=== PATIENT | male | born 1940 | race Caucasian/White ===

== ENCOUNTER 2024-03-28 10:14 | Emergency (ER) | payer MEDICARE, BC, SELFPAY ==
[2024-03-28] VITALS (14 sets, daily range): BP systolic 137–162; BP diastolic 74–90; PULSE 57–70; RESP 18; TEMP 36.2; O2SAT 94–98; BMI 30.6
--- NOTE | 2024-03-28 10:33 | ED.GENADULT ---
HPI - General Adult General Time Seen by Provider: 10:34 Date Seen: 03/28/24 Chief complaint: Dizziness/Vertigo Stated complaint: lightheaded Time Seen by Provider: 03/28/24 10:33 Source: patient and RN notes reviewed Mode of arrival: ambulatory Limitations: no limitations History of Present Illness HPI narrative: We do not have records here and thus I am requesting records from [facility]. Marcelino is a very pleasant 84-year-old gentleman with history of vertigo, cardiac murmur, hyperlipidemia who comes to the [facility] for evaluation regarding lightheadedness. Marcelino notes a past history of vertigo at least 3 episodes where he has had need to go to the hospital or be seen by a chiropractor. He notes that when he has vertigo the room is usually spinning and he has episodes of vomiting. Last weekend March 19 and he began experiencing lightheadedness. He did not have the spinning sensation nor the nausea or vomiting. He states that he went and saw the chiropractor on ThursdayMarch 21 and following that adjustment he had no symptoms until yesterday. Yesterday he states that he was in his golf cart checking out his sweet corn when he had an episode of lightheadedness lasting 10-15 minutes. Marcelino notes that this happened again this morning. He notes that his balance is quite off when walking. He notes when the symptoms come on he will sit down. He does not really endorse feeling like he is going to pass out. He does not have an unusual sound in his hearing, he initially thought maybe he had a change in vision but upon further discussion does not think his vision changed. He denies chest pain. He notes he feels very fatigued. Last night he had no symptoms of lightheadedness but states that he was very restless. Usually when he has vertical if he turns over in bed it causes him to spin and vomit and this was not the case last night. Denies cough cold congestion sore throat fever runny nose. Does state that he urinates frequently and has been doing that a little more than usual the last week. He states that he tries to drink lots of fluids. His states that he has a does not drink fluids. He did not try using the meclizine which she has at home for vertigo. Yesterday he did have a little bit of diarrhea which was unusual for him. No diarrhea today. Patient stents that he has a history of of leaky valve. Is not sure which 1. We will attempt to obtain records. Related Data Home Medications ?Medication ?Instructions ?Recorded ?Confirmed amlodipine 5 mg tablet 5 mg PO DAILY 03/28/24 03/28/24 nabumetone 750 mg tablet 750 mg PO DAILY pain 03/28/24 03/28/24 simvastatin 20 mg tablet 20 mg PO QPM 03/28/24 03/28/24 Allergies Allergy/AdvReac Type Severity Reaction Status Date / Time No Known Drug Allergies Allergy Verified 03/28/24 10:25 Review of Systems Status of ROS: Reports: 10 or more systems reviewed and unremarkable except as noted in History and below Const: Reports: fatigue; Denies: fever or chills Eyes: Denies: change in vision or blurry vision ENMT: Denies: throat pain, neck pain, difficulty swallowing or nasal congestion Cardio: Reports: lightheadedness; Denies: chest pain, palpitations, swelling of feet/ankles or shortness of breath with exertion Resp: Denies: shortness of breath, cough or wheezing GI: Reports: diarrhea (Limited to yesterday); Denies: abdominal pain, nausea, vomiting or difficulty swallowing : Reports: urinary frequency and urinary urgency; Denies: painful urination or blood in urine Musculo: Denies: neck pain Neuro: Denies: headache Endo: Reports: fatigue Allergy/Immuno: Denies: wheezing PFSH [facility] Medical History (Updated 03/28/24 @ 13:33 by Madeleine Benites MD) Aortic valve sclerosis ?I35.8 - Other nonrheumatic aortic valve disorders (ICD-10) Esophageal reflux ?K21.9 - Gastro-esophageal reflux disease without esophagitis (ICD-10) Hypertension ?I10 - Essential (primary) hypertension (ICD-10) Hyperlipidemia ?E78.5 - Hyperlipidemia, unspecified (ICD-10) Benign prostatic hyperplasia ?N40.0 - Benign prostatic hyperplasia without lower urinary tract symptoms (ICD-10) Actinic keratosis ?L57.0 - Actinic keratosis (ICD-10) Finger amputation, no complication ?S68.119A - Complete traumatic metacarpophalangeal amputation of unspecified finger, initial encounter (ICD-10) Surgical History (Updated 03/28/24 @ 11:15 by Madeleine Benites MD) History of cholecystectomy ?Z90.49 - Acquired absence of other specified parts of digestive tract (ICD-10) Social History Smoking Status: Never smoker How often do you have a drink containing alcohol: never AUDIT-C Alcohol total score: 0 Non-prescribed substance use: denies use Exam Narrative: Exam Narrative: Alert and oriented. A challenging historian with variable answers. EOM is full and pupils equal round reactive. Head is atraumatic normocephalic. No nystagmus noted. Face symmetrical with eyebrow raise smile. Tongue is midline. Oral cavity moist mucous membranes. Palate rises symmetrically. Neck is supple without lymphadenopathy. Heart with regular rate and rhythm. There is a holosystolic crescendo decrescendo murmur. Lungs are clear bilaterally. Abdomen is soft nontender with no pulsating mass. Pedal pulses are intact symmetrical. No evidence of lower extremity edema. Romberg is negative. Finger to nose intact. Able to move all extremities with full motor and strength. Const: Vital Signs, click to edit/add: Vital Signs - 24 hr 03/28/24 10:22 03/28/24 11:10 Temperature 97.1 F L Pulse Rate [Right Pulse Oximeter] 69 Pulse Rate [orthos tatic lying Left] 62 Pulse Rate [orthos tatic sitting Left ] 68 Pulse Rate [orthos tatic standing Lef t] 63 Respiratory Rate 18 Blood Pressure [Ri ght Upper Arm] 143/74 H Blood Pressure [or thostatic lying Le ft Arm] 158/82 H Blood Pressure [or thostatic sitting Left Arm] 137/90 H Blood Pressure [or thostatic standing Left Arm] 156/80 H Pulse Oximetry 94 Oxygen Delivery Me thod Room Air Documenting provider has reviewed patient's vital signs: yes Course Course ED Course: Differential diagnosis includes but is not limited to critical aortic stenosis, angina, cardiac arrhythmia, orthostatic hypotension, vertigo/labyrinthitis, electrolyte imbalance, UTI. Will place IV and draw blood to include CBC, comprehensive panel, CRP, troponin, urinalysis. Will also do EKG, photography instructor, chest x-ray, orthostatic vital signs. Reevaluation(s) Reevaluation #1: Patient continues to do well and does not have any symptoms at this time. Initial troponin reassuring as was EKG with no evidence of arrhythmia. Chest x-ray reassuring. At this time patient does need to urinate and we will do a post void bladder scan as well. Plan on 2nd troponin at 1310 Reevaluation #2: Patient noted to be up walking was asymptomatic on his walk to the bathroom and back. Hallpike maneuver accomplished and patient had no symptoms when lying down suddenly. No evidence of nystagmus. He had a slight transient dizziness less than 1 minute when sitting back up. On the left no dizziness when lying down and no dizziness when sitting back up. Reevaluation #3: Second troponin negative. Vital Signs Vital signs: Initial Vital Signs Temperature 97.1 F L 03/28/24 10:22 Temperature Source Temporal Artery Scan 03/28/24 10:22 Pulse Rate 69 03/28/24 10:22 Respiratory Rate 18 03/28/24 10:22 Blood Pressure 143/74 H 03/28/24 10:22 Blood Pressure Mean 97 03/28/24 10:22 Blood Pressure Position Sitting 03/28/24 10:22 Pulse Oximetry 94 03/28/24 10:22 Oxygen Delivery Method Room Air 03/28/24 10:22 Vital Signs Temperature 97.1 F L 03/28/24 10:22 Pulse Rate 69 03/28/24 10:22 Respiratory Rate 18 03/28/24 10:22 Blood Pressure 143/74 H 03/28/24 10:22 Pulse Oximetry 94 03/28/24 10:22 Oxygen Delivery Method Room Air 03/28/24 10:22 Temperature 97.1 F L 03/28/24 10:22 Pulse Rate 68 03/28/24 11:10 Respiratory Rate 18 03/28/24 10:22 Blood Pressure 158/82 H 03/28/24 11:10 Pulse Oximetry 94 03/28/24 10:22 Oxygen Delivery Method Room Air 03/28/24 10:22 Medications Administered Medications: Discontinued Medications Generic Name Dose Route Start Last Admin Trade Name Freq PRN Reason Stop Dose Admin Sodium Chloride 1,000 mls @ 1,000 mls/hr 03/28/24 10:47 03/28/24 12:14 0.9 % Sodium Chloride 1000 Ml IV 03/28/24 11:46 Infused .Q1H [facility] Medical Decision Making MDM Narrative Medical decision making narrative: 1. Lightheadedness-patient noted to have past history of vertigo. Usually this was acute spinning and vomiting. He describes previously undergoing Radha's maneuvers, hemodialysis patient care specialist and does have a prescription for meclizine. What he has been experiencing currently is more of a lightheadedness. However he does describe the need to sit down with this occurs, no chest pain shortness of breath or nausea. He was asymptomatic during his time here except for a brief moment when I was doing Hallpike maneuvers and he was brought back up sitting from a right-sided test. That was transient. I was unable to replicate this on the left. Given these findings this most likely represents mild form of vertigo. Patient describes discomfort over his ears in the past but he has not had that this week and I am unable to ascertain what that might mean. He also states that 2 years ago he was at the dentist and when they were leaning him back he did have some spinning. At this time what I suggest is follow-up with his primary provider. I suggest follow-up with Neurology for his symptoms. Today he did not have any symptoms indicative of a stroke and therefore did not pursue imaging. I suggest the use of meclizine as needed. 2. Aortic valve sclerosis-obvious auscultatory findings. Patient however denies chest pain or shortness of breath and therefore while we need to consider an aortic valve stenosis he certainly does not have any symptoms indicative of need for immediate intervention. He does have a follow-up appointment with Cardiology for echocardiogram in May. If however this worsens any does started experiencing pain he will need to return to the emergency room. There was no evidence of arrhythmia while he was here and 2 sets of cardiac enzymes were negative 3. Urinary frequency-urinalysis without evidence of UTI. A post void bladder scan was negative for urinary retention. 4. Disposition-patient is quite frustrated that we are unable to ascertain the exact cause of his symptoms. He has essentially been asymptomatic during his stay here. There is no evidence of an acute coronary event, arrhythmia, acute stroke, electrolyte imbalance, UTI. Recommend returning to the emergency room for worsening symptoms. Patient and his voice understanding. Medical Records Medical records reviewed: Yes I reviewed the patient's medical records Lab Data Lab results reviewed: Yes I reviewed the patient's lab results Labs: Lab Results 03/28/24 03/28/24 03/28/24 Range/Units 11:10 12:20 13:10 WBC 7.84 (4.50-11.00) K/uL RBC 4.54 (4.30-5.90) m/uL Hgb 13.5 (13.5-17.5) gm/dL Hct 39.7 (37.0-53.0) % MCV 87 (80-100) fL MCH 30 (26-34) pg MCHC 34 (32-36) gm/dL RDW Coeff of Alem 12.9 (11.5-15.5) % Plt Count 212 (140-440) K/uL Neut % (Auto) 67.1 (42.0-72.0) % Lymph % (Auto) 19.6 L (20-44) % Bacon % (Auto) 8.2 (0.0-11.0) % Eos % (Auto) 4.2 (0.0-7.0) % Baso % (Auto) 0.8 (0.0-3.0) % Neut # (Auto) 5.26 (1.7-7.0) K/uL Lymph # (Auto) 1.50 (0.90-2.90) K/uL Bacon # (Auto) 0.60 (0.00-0.90) K/UL Eos # (Auto) 0.33 (0.00-0.50) K/uL Baso # (Auto) 0.06 (0.00-0.30) K/uL Abs Immat Gran (auto) 0.01 (0.00-0.30) K/uL Imm/Tot Granulo (auto) 0.1 % Sodium 138 (135-149) mmol/L Potassium 4.0 (3.6-5.1) mmol/L Chloride 106 (96-114) mmol/L Carbon Dioxide 25 (20-32) mmol/L Anion Gap 7 (7-15) mEq/L BUN 22 (7-30) mg/dL Creatinine 1.3 (0.5-1.5) mg/dL Estimated Creat Clear 33.43 Estimated GFR 54 ml/min Glucose 98 (60-115) mg/dL Calcium 8.9 (8.4-10.6) mg/dL Total Bilirubin 0.7 (0.1-1.5) mg/dL AST 23 (12-35) U/L ALT 10 (4-50) U/L Alkaline Phosphatase 96 (40-150) U/L C-Reactive Protein < 0.5 L (0.5-1.0) mg/dL Total Protein 7.3 (6.0-8.3) g/dL Albumin 4.4 (3.3-5.0) g/dL Urine Color Yellow (Yellow) Urine Appearance Clear (Clear) Urine pH 6.0 (5.0-8.5) Ur Specific [place] 1.015 (1.000-1.030) Urine Protein Negative (Negative) Urine Glucose (UA) Negative (Negative) Urine Ketones Negative (Negative) Urine Blood Negative (Negative) Urine Nitrite Negative (Negative) Urine Bilirubin Negative (Negative) Urine Urobilinogen 0.2 (0.2-1.0) Ur Leukocyte Esterase Negative (Negative) Urine RBC 0-2 (0-2) Urine WBC 0-2 (0-5) Ur Squamous Epith Cells None (None-Few) Urine Bacteria None (None) POC Troponin I 0.03 0.03 (0.01-0.04) ng/ml Imaging Data Chest x-ray: Attestation: I have reviewed the pertinent imaging results. My impression: No widened mediastinum or infiltrates Radiologist's impression: The cardiomediastinal silhouette and pulmonary vasculature are unremarkable. There is no focal airspace consolidation, pleural effusion, or pneumothorax. Trace left basilar atelectasis/scarring. No displaced fractures. Impression No acute cardiopulmonary process. ECG Data Attestation: I personally reviewed and interpreted this ECG as follows: Interpretation: EKG by my read shows sinus rhythm at a rate of 60. No acute ST or T-wave changes. 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 QT and OK intervals within normal limits. Discharge Plan Discharge Clinical Impression: Episodic lightheadedness Patient Disposition: Home, Self-Care Condition: Unchanged Additional Instructions: At this time, your test for heart attack or unusual heart rhythm are negative and therefore reassuring. Most likely your lightheadedness is a version of your vertigo but I cannot be 100% sure of that. I did not find any other emergent problems today. Your urine does not have an infection, your electrolytes are normal, your hemoglobin or blood counts are good. Your kidney function is also good. Your lightheadedness may be related to your aortic valve. There is nothing emergent to be done today unless you would develop chest pain with it. My recommendation is to use the meclizine medication if needed for lightheadedness. Follow-up with your primary doctor for further evaluation. Because this is an ongoing problem I suggest you see a neurologist. Prescriptions: No Action nabumetone 750 mg tablet 750 mg PO DAILY amlodipine 5 mg tablet 5 mg PO DAILY simvastatin 20 mg tablet 20 mg PO QPM Follow Up/Referrals: Provider,Not a Local [Primary Care Provider] - Stand Alone Forms: [employer] Info Instructions
--- NOTE | 2024-03-28 11:09 | CRLHL7_ITS ---
For Patients: As a result of the Century Cures Act, medical imaging exams and procedure reports are released immediately into your electronic medical record. You may view this report before your referring provider. If you have questions, please contact your health care provider. Indication Lightheaded Technique One view(s) of the chest Comparison None Findings The cardiomediastinal silhouette and pulmonary vasculature are unremarkable. There is no focal airspace consolidation, pleural effusion, or pneumothorax. Trace left basilar atelectasis/scarring. No displaced fractures. Impression No acute cardiopulmonary process. Dictated by Kenan Grace MD @ 03/28/2024 11:25:47 AM (Electronically Signed)
--- OUTSIDE RECORDS SUMMARY | 2024-03-28 11:09 | XMS_ITS | Clinical Summary ---
Author Organization [facility] Address [address] [place] [address] Care Team Providers Care Government Program Manager Name Role Phone Chester Moncada P.A.-C., P.A. Primary Care Pr ovider Source Comments Patient records contain information from all sites at [facility]. For routine questions regarding patient records, call [phone] during business hours, M-F 8:00 AM - 5:00 PM Central Time. Record requests for emergency care only can be directed to [phone] at any time.[facility] Allergies Active Allergy Reactions Criticality Noted Date Comments Lisinopril Angioedema (Reselect Reaction) 02/11 Medications Medication Sig Dispensed Refills Start Date End Date Status omeprazole 20 mg tablet,delayed release (DR/EC) Take 1 capsule by mouth daily. 01/15/2011 Active triamcinolone (KENALOG) 0.1 % cream Apply 1 application topically 2 (two) times a day as needed for irritation or rash. 454 g 2 06/17/2021 Active hydrocortisone (HYTONE) 2.5 % cream 04/19/2023 Active nabumetone (RELAFEN) 750 mg tablet TAKE ONE TABLET BY MOUTH EVERY DAY 90 tablet 3 05/27/2023 Active amLODIPine (NORVASC) 5 mg tablet Take 1 tablet (5 mg total) by mouth daily. 90 tablet 3 05/29/2023 Active simvastatin (ZOCOR) 20 mg tablet Take 1 tablet (20 mg total) by mouth at bedtime. 90 tablet 3 05/29/2023 05/28/2024 Active Active Problems Problem Noted Date Diagnosed Date Keratosis Actinic 04/30/2022 Benign Prostatic Hyperplasia Without Obstruction 04/18/2020 Sclerosis Aortic Valve 02/25/2018 Hypertension Essential Primary 01/25/2018 Reflux Esophageal 01/15/2011 Hyperlipidemia 01/15/2011 Resolved Problems Problem Noted Date Diagnosed Date Resolved Date Carpal Tunnel Syndrome Bilateral 10/03/2019 05/02/2021 Hypertension Essential Benign 06/06/2013 01/27/2019 Overview: Benign hypertension Thrombosis Deep Vein Acute Lower Leg 01/15/2011 01/27/2019 Overview: DVT or embolism of distal lower extremity Immunizations Name Administration Dates Next Due HZV (ZOSTAVAX) 09/04/2010,07/05/2010 Influenza (IM) Preservative Free 08/06/2010 Influenza TIV (IM) 06/09/2019 Influenza high dose QV(65 ye ars or older) (PF) 06/14/2020,05/24/2020 Influenza, Quadrivalent, Adj uvanted, Preservative Free 07/17/2022,06/13/2021 Influenza, Seasonal, Injectable 08/11/2011,08/25 Influenza, Unspecified 08/06/2010,08/25/2003 PCV13 02/06/2016 PPSV23 02/20/2017 RZV (SHINGRIX) 01/31/2021,,04/05/2020(Deferr ed: Patient Refused) Td (Adult), adsorbed 04/05/2020(Deferred: Other) Tdap 04/05/2020(Deferred: Patient Ref used) Zoster, Unspecified 04/05/2020(Deferred: Other) influenza high dose (65 year s or older) (PF) 06/10/2018,06/16/2017,06/17/2016,2014,06/19/2014,06/13/2012 Family History Medical History Relation Name Comments Alzheimer's disease Brother 1 Diabetes Brother 1 Hypertension Brother 1 Diabetes Brother 2 Relation Name Status Comments Brother 1 Brother 2 Social History Tobacco Use Types Packs/Day Years Used Date Smoking Tobacco: Never Smokeless Tobacco: Never Tobacco Cessation:Counseling Given: Not Answered Alcohol Use Standard Drinks/Week Comments Yes 1 (1 standard drink = 0.6 oz pur e alcohol) Humiliation, Afraid, Rape, and Kick questionnair e Answer Date Recorded Within the last year, have y ou been afraid of your partner or ex-partner? No 07/31/2022 Within the last year, have y ou been humiliated or emotionally abused in other ways by your partner or ex-partner? No Within the last year, have y ou been kicked, hit, slapped, or otherwise physically hurt by your partner or ex-partner? No 07/31/2022 Within the last year, have y ou been raped or forced to have any kind of sexual activity by your partner or ex-partner? No 07/31/2022 Social Connection and Isolat ion Panel [NHANES] Answer Date Recorded In a typical week, how many times do you talk on the phone with family, friends, or neighbors? More than three times a week 07/31/2022 How often do you get togethe r with friends or relatives? Three times a week 07/31/2022 How often do you attend [facility] or jehovah's witness services? More than 4 times per year 07/31/2022 Do you belong to any clubs o r organizations such as quaker groups, unions, fraternal or athletic groups, or school groups? Yes 07/31/2022 How often do you attend meet ings of the clubs or organizations you belong to? 1 to 4 times per year 07/31/2022 Are you , , di vorced, , never , or living with a partner? 07/31/2022 AUDIT-C Answer Date Recorded Q1: How often do you have a drink containing alcohol? Monthly or less 07/31/2022 Q2: How many drinks containi ng alcohol do you have on a typical day when you are drinking? Patient does not drink Q3: How often do you have si x or more drinks on one occasion? Never 07/31/2022 Overall Financial Resource Strain (CARDIA) Answe r Date Recorded How hard is it for you to pa y for the very basics like food, housing, medical care, and heating? Not hard at all 07/31/2022 PHQ-2 Answer Date Recorded PHQ-2 Score 0 05/22/2023 [facility] - Occupational Stress Questionnaire Answer Date Recorded Do you feel stress - tense, restless, nervous, or anxious, or unable to sleep at night because your mind is troubled all the time - these days? Only a little 07/31/2022 Exercise Vital Sign Answer Date Recorde d On average, how many days pe r week do you engage in moderate to strenuous exercise (like a brisk walk)? 4 days 07/31/2022 On average, how many minutes do you engage in exercise at this level? 30 min 07/31/2022 Hunger Vital Sign Answer Date Recorded Within the past 12 months, y ou worried that your food would run out before you got the money to buy more. Never true 07/31/20 Within the past 12 months, t he food you bought just didn't last and you didn't have money to get more. Never true 07/31/2022 PRAPARE - Transportation Answer Date Re corded In the past 12 months, has l ack of transportation kept you from medical appointments or from getting medications? No 07/15 In the past 12 months, has l ack of transportation kept you from meetings, work, or from getting things needed for daily living? No 07/31/2022 Housing Stability Vital Sign Answer Antonio e Recorded In the last 12 months, was t here a time when you were not able to pay the mortgage or rent on time? No 07/31/2022 In the last 12 months, how many places have you lived? 2 07/31/2022 In the last 12 months, was t here a time when you did not have a steady place to sleep or slept in a assisted (including now)? No 07/31/2022 Nutrition Answer Date Recorded Nutrition: EVOO Fat Source Unknown 07/31 On average, how many serving s of fruits and vegetables do you eat per day (serving size is equal to 1 cup or approximately the size of a tennis ball)? 2-3 07/31/2022 Dental Answer Date Recorded Dental: Regular Dentist Yes 07/31/20 Education Answer Date Recorded What is the highest level of school you have completed or the highest degree you have received? 12th grade 07/31/2022 Sex and Gender Information Value Date Recorded Sex Assigned at Male 04/28/2023 1:33 PM CDT Gender Identity Male 04/28/2023 1:33 PM CDT Sexual Orientation Straight 04/28/2023 1: 33 PM CDT Last Filed Vital Signs Vital Sign Reading Time Taken Comments Blood Pressure 125/68 05/29/2023 7:[address] rage Pulse 68 05/29/2023 7:59 AM CDT Temperature 36 ??C (96.8 ??F) 05/29/2023 7:59 AM CDT Respiratory Rate 16 05/29/2023 7:59 AM CDT Oxygen Saturation 97% 04/29/2023 8:33 AM CDT room air Inhaled Oxygen Concentration - - Weight 80.1 kg (176 lb 9.4 oz) 05/29/2023 7:59 A M CDT Height 164 cm (5' 4.57) 05/29/2023 7:59 AM CDT Body Mass Index 29.78 05/29/2023 7:59 AM CDT Plan of Treatment Upcoming Encounters Date Type Department Care Team (Latest Contact Info) Description 05/25/2024 8:00 AM CDT Appointment Department of Cardiovascular Diseases in [address] [phone] Pepe Marks M.D. [address] [place] [phone] Discharge Disposition: Home or Self Care 05/30/2024 8:50 AM CDT Appointment Department of Laboratory Medicine in [address] [phone] Pepe Marks M.D. [address] [place] [phone] 05/30/2024 9:10 AM CDT Appointment Department of Laboratory Medicine in [address] [phone] Chester Moncada P.A.-Louis., P.A. [address] [place] [phone] 06/01/2024 8:15 AM CDT Office Visit Department of Cardiovascular Diseases in [place], [place] [address] [place] [address] Pepe Marks M.D. [address] [place] [address] 06/06/2024 8:00 AM CDT Comprehensive Visit Department of Family Medicine, [facility], in [place], [place] [address] [place] [address] Chester Moncada P.A.-Louis., P.A. [address] [place] [address] Health Maintenance Due Date Last Done Comments DTaP,Tdap,and Td Vaccines (1 - Tdap) 1959 COVID-19 Vaccine (4 - 2022-2 4 season) 2023 08/29/2021, 01/07/2021, 12/18/2020 Visit: Medicare Annual Wellness 08/01/2023 2 Depression Screening (Annual PHQ-2) 09/14/2023 Fall Risk Screen (Annual) 09/14/2023 Office Visit for Blood Press ure Check / Re-check 05/29/2024 05/29/2023 Visit: Chronic Disease, age 18+ 05/29/2024 3 Influenza Vaccine (#1) 2024 3, 07/17/2022, 06/13/2021, Additional history exists Pneumococcal vaccine (65+ years) Completed 02/21/20 17, 02/06/2016 Zoster Vaccines Completed 01/31/2021, 04/2020, 09/04/2010, Additional history exists Medical Devices Implanted Type Area Social Science Manager Device Identifier Shelf Expiration Date Model / Serial / Lot Ocular Lens Ocular Lens Bilateral : Eye Care Teams Government Program Manager Relationship Specialty Start Date End Date Chester Moncada P.A.-C., P.A. PCP - General Family Medicine 01/24/19
--- OUTSIDE RECORDS SUMMARY | 2024-03-28 11:09 | XMS_ITS | Referral Summary ---
Author Organization [facility] Address [address] [place] [address] Care Team Providers Care Development Director Name Role Phone Chester Moncada P.A.-C., P.A. Primary Care Pr ovider Source Comments Patient records contain information from all sites at [facility]. For routine questions regarding patient records, call [phone] during business hours, M-F 8:00 AM - 5:00 PM Central Time. Record requests for emergency care only can be directed to [phone] at any time.[facility] Allergies Active Allergy Reactions Criticality Noted Date [...] (65 year s or older) (PF) 06/10/2018,06/16/2017,06/17/2016,2014,06/19/2014,06/13/2012 Social History Tobacco Use Types Packs/Day Years [...] week 07/31/2022 How often do you attend chur or baptism services? More than 4 times per year 07/31/2022 Do you belong to any clubs o r organizations such as rastafari groups, unions, fraternal or athletic groups, or [...] Answer Date Recorded PHQ-2 Score 0 05/22/2023 [facility] - Occupational Stress [...] CDT Appointment Department of Cardiovascular Diseases in [address] [phone] Pepe Marks M.D. [address] [place] [phone] Discharge Disposition: Home or Self Care 05/30/2024 8:50 AM CDT Appointment Department of Laboratory Medicine in [address] [phone] Pepe Marks M.D. [address] [place] [phone] 05/30/2024 9:10 AM CDT Appointment Department of Laboratory Medicine in [address] [phone] Chester Moncada P.A.-C., P.A. [address] [place] [phone] 06/01/2024 8:15 AM CDT Office Visit Department of Cardiovascular Diseases in [address] [place] [address] Pepe Marks M.D. [address] [facility] [place] [place] [phone] 06/06/2024 8:00 AM CDT Comprehensive Visit Department of Family Medicine, [facility], in [place], [place] [address] [facility] [place] [address] Chester Moncada P.A.-C., P.A. [address] [facility] [place] [address] Medical Devices Implanted Type Area Instructional Design Technologist Device Identifier Shelf Expiration Date Model / Serial / Lot Ocular Lens Ocular Lens Bilateral : Eye Care Teams Development Director Relationship Specialty Start Date End Date Chester Moncada P.A.-C., P.A. PCP - General Family Medicine 01/24/19
--- OUTSIDE RECORDS SUMMARY | 2024-03-28 11:09 | XMS_ITS | Clinical Summary ---
Author Organization [facility] Address [place], [place] [address] Care Team Providers Care Guide Domestic Tour Name Role Phone Merrill John MD Primary Care Provider Allergies Active Allergy Reactions Criticality Noted Date Comments Lisinopril Angioedema 02/12/2016 Medications Medication Sig Dispensed Refills Start Date End Date Status OMEPRAZOLE 20 MG CAP, DELAYED RELEASE take one capsule by mouth twice daily 0 0 Active ASPIRIN 81 MG TAB Take 1 tablet daily by mouth Active cholecalciferol (VITAMIN D3) 2,000 unit capsuleIndications:HT N (hypertension) Take 1 capsule by mouth once daily. 1 capsule 0 03/12/2016 Active simvastatin (ZOCOR) 40 mg tabletIndications:HTN (hypertension) Take 1 tablet by mouth at bedtime. 90 tablet 4 02/20/2017 Active nabumetone (RELAFEN) 750 mg tabletIndications:Art hritis Take 1 tablet by mouth once daily with a meal. 90 tablet 3 02/20/2017 Active amLODIPine (NORVASC) 5 mg tabletIndications:HTN (hypertension) Take 1 tablet by mouth once daily. 90 tablet 3 02/20/2017 Active Active Problems Problem Noted Date Diagnosed Date Acute cholecystitis 01/19/2009 Hyperlipidemia 01/18/2009 Overview: - Was taking Lipitor for 5 years but developed myalgias and had to stop. 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 Hx of DVT 5 years ago Overview: Updated by system to replace inactive record Murmur Overview: - check echocardiogram HTN (hypertension) Immunizations Name Administration Dates Next Due Influenza, High-dose Inactivated 07/05/2015 Pneumococcal Poly,23-Valent (Pneumovax) 02/21/20 17 Pneumococcal conj 13-Valent (Prevnar 13) 016 Zoster (Zostavax-ZVL, live) 07/05/2010 Family History Medical History Relation Name Comments Diabetes Brother Heart Disease Father Later in life Relation Name Status Comments Brother Father Social History Tobacco Use Types Packs/Day Years Used Date Smoking Tobacco: Never Smokeless Tobacco: Never Alcohol Use Standard Drinks/Week Comments Yes 0 (1 standard drink = 0.6 oz pur e alcohol) Occasional Sex and Gender Information Value Date Recorded Sex Assigned at Not on file Gender Identity Not on file Sexual Orientation Not on file Obstetrics History Last Filed Vital Signs Vital Sign Reading Time Taken Comments Blood Pressure 140/72 02/20/2017 10:21 AM CDT Pulse 68 02/20/2017 10:21 AM CDT Temperature 37 ??C (98.6 ??F) 01/20/2009 1:00 PM CDT Respiratory Rate 14 01/20/2009 10:00 AM CDT Oxygen Saturation 94% 01/20/2009 10:00 AM CDT Inhaled Oxygen Concentration - - Weight 81.5 kg (179 lb 9.6 oz) 02/20/2017 10:21 AM CDT Height 163.8 cm (5' 4.5) 02/20/2017 10:21 AM CD T Body Mass Index 30.35 02/20/2017 10:21 AM CDT Plan of Treatment Health Maintenance Due Date Last Done Comments Tdap 1950 Tetanus booster 1959 Zoster (shingles) series for age 50+ (2 of 3) 08/30/2010 07/05/2010 BMI (ht and wt on same day) for age 18+ 02/20/2018 02/20/2017, 02/06/2016 Depression screening for age 12+ 02/20/2018 02/20/2017, 02/17/2017, 02/06/2016 COVID-19 vaccine series ( season) 2023 Influenza for age 65+ 05/15/2024 07/05/2015 Pneumococcal series for age 65+ Completed 7, 02/06/2016 Advance Directives * Full Code (Latest Code Status on File) Date Activated Date Inactivated Comments 01/18/2009 11:09 AM 01/20/2009 5:22 PM Care Teams Guide Domestic Tour Relationship Specialty Start Date End Date Merrill John MD [address] [facility] [place] [id number] PCP - General Family Practice 01/23/16
--- OUTSIDE RECORDS SUMMARY | 2024-03-28 11:09 | XMS_ITS ---
Author Organization [facility] Address [address] [place] [address] Care Team Providers Care Java Architect Name Role Phone Unavailable Unavailable Unavailable Surgery Details Not on file Complications Check Surgery Details section. Procedure Estimated Blood Loss Check Surgery Details section. Procedure Findings Check Surgery Details section. Procedure Specimens Taken Check Surgery Details section.
[2024-03-28] MEDS: 0.9 % SODIUM CHLORIDE 1000 ml 1,000 ML IV (11:12)
[2024-03-28 11:34] LABS: Basophils Absolute Auto 0.06 K/uL (0.00-0.30); Basophils Percent Auto 0.8 % (0.0-3.0); Eosinophils Absolute Auto 0.33 K/uL (0.00-0.50); Eosinophils Percent Auto 4.2 % (0.0-7.0); Hematocrit 39.7 % (37.0-53.0); Hemoglobin* 13.5 gm/dL (13.5-17.5); Immature Granulocytes Abs Auto 0.01 K/uL (0.00-0.30); Immature Granulocytes Pct Auto 0.1 %; Lymphocytes Percent Auto 19.6 % (20-44); Mean Corpuscular HGB Conc 34 gm/dL (32-36); Mean Corpuscular Hemoglobin 30 pg (26-34); Mean Corpuscular Volume 87 fL (80-100); Monocytes Percent Auto 8.2 % (0.0-11.0); Neutrophils Absolute Auto 5.26 K/uL (1.7-7.0); Neutrophils Percent Auto 67.1 % (42.0-72.0); Platelet Count* 212 K/uL (140-440); RDW Coefficient of Variation % 12.9 % (11.5-15.5); Red Blood Count 4.54 m/uL (4.30-5.90); White Blood Count* 7.84 K/uL (4.50-11.00)
[2024-03-28 11:35] LABS: Troponin, Point-of-Care* 0.03 ng/ml (0.01-0.04)
[2024-03-28 11:37] LABS: Chloride* 106 mmol/L (96-114)
[2024-03-28 11:38] LABS: Albumin* 4.4 g/dL (3.3-5.0); Sodium* 138 mmol/L (135-149)
[2024-03-28 11:40] LABS: Creatinine* 1.3 mg/dL (0.5-1.5); Est. Creatinine Clearance* 33.43; Estimated Glomerular Filt Rate 54 ml/min
[2024-03-28 11:41] LABS: Alanine Aminotransferase* 10 U/L (4-50); Alkaline Phosphatase* 96 U/L (40-150); Anion Gap 7 mEq/L (7-15); Aspartate Amino Transferase* 23 U/L (12-35); Bilirubin Total* 0.7 mg/dL (0.1-1.5); Blood Urea Nitrogen* 22 mg/dL (7-30); Carbon Dioxide* 25 mmol/L (20-32); Glucose* 98 mg/dL (60-115); Total Protein* 7.3 g/dL (6.0-8.3)
[2024-03-28 11:42] LABS: Calcium* 8.9 mg/dL (8.4-10.6)
[2024-03-28 11:44] LABS: Slide Review Reflex No
[2024-03-28 11:45] LABS: C Reactive Protein* < 0.5 mg/dL (0.5-1.0)
[2024-03-28 12:30] LABS: Appearance Urine Clear (Clear); Bilirubin Urine Negative (Negative); Blood Urine Negative (Negative); Color Urine Yellow (Yellow); Glucose Urine Negative (Negative); Ketones Urine Negative (Negative); Leukocyte Esterase Urine Negative (Negative); Nitrite Urine Negative (Negative); Protein Urine Negative (Negative); Specific Gravity Urine 1.015 (1.000-1.030); Urobilinogen Urine 0.2 (0.2-1.0)
[2024-03-28 12:37] LABS: RBC Urine 0-2 (0-2); WBC Urine 0-2 (0-5)
[2024-03-28 13:34] LABS: Troponin, Point-of-Care* 0.03 ng/ml (0.01-0.04)
== END 2024-03-28 14:10 | disposition home or self-care (01) ==
PROVIDERS: Emergency Provider Family Medicine
DX: R42 Dizziness and giddiness (principal)
CPT/HCPCS: 36415; 51798; 71045; 80053; 81001; 84484; 85025; 86140; 87210; 93005; 99284; 99285; J7030